=== PATIENT | female | born 1995 | race Caucasian/White ===

== ENCOUNTER 2017-09-01 08:26 | Emergency (ER) | payer MEDICAID ==
[~2017-09-01] VITALS: Ht 175.3 cm; Wt 86.2 kg
[~2017-09-01 08:26] MED LIST: ATOM40CA; DEXM30CA; DIVA250T6; IBUP800T24
[2017-09-01] MEDS ORDERED: SODIUM CHLORIDE 0.9% 1,000 ML IV ONE (09:00)
[2017-09-01 09:29] LABS: Basophils # (auto) 0 uL; Basophils % (auto) 0.6 % (0.0-2.0); Eosinophils # (auto) 0.2 uL; Eosinophils % (auto) 3.3 % (0.0-7.0); Hemoglobin 12.9 g/dL (12.2-16.2); Lymphocytes # (auto) 1.4 uL; Lymphocytes % (auto) 22.4 % (10.0-50.0); Mean Corpuscular Hemoglobin 28.9 pg (28.0-32.0); Monocytes # (auto) 0.6 uL; Monocytes % (auto) 9.2 % (0.0-12.0); Neutrophils # (auto) 4.1 uL; Neutrophils % (auto) 64.5 % (37.0-80.0); Platelet Count (auto) 271 10^3/uL (140-450); Red Blood Cells 4.47 10^6/uL (4.0-5.20); Red Cell Distribution Width 13.9 % (11.8-14.3); White Blood Cell 6.4 10^3/uL (4.4-10.8)
[2017-09-01 09:47] LABS: Alcohol, Urine < 3.0 mg/dL (0-5); Amphetamine Screen, Urine NEGATIVE (NEGATIVE); Barbiturate Scree,Urine NEGATIVE (NEGATIVE); Benzodiazephine Screen, Urine NEGATIVE (NEGATIVE); Cannabinoid Screen, Urine POSITIVE (NEGATIVE); Cocaine Screen, Urine NEGATIVE (NEGATIVE); Opiate Scree,Urine NEGATIVE (NEGATIVE); Phencyclidine Screen, Urine NEGATIVE (NEGATIVE)
[2017-09-01] MEDS ORDERED: SODIUM CHLORIDE 0.9% 1,000 ML IVB ONE (09:53)
[2017-09-01 09:58] LABS: Albumin 3.6 g/dL (3.4-5.0); BUN/Creatinine Ratio 14.8; Bilirubin, Total 0.3 mg/dL (0.2-1.0); Calcium 8.5 mg/dL (8.5-10.1); Potassium 3.7 mmol/L (3.5-5.1); Total Protein 7.3 g/dL (6.4-8.2)
[2017-09-01 10:02] LABS: Acetaminophen < 2.0 ug/mL (10-30); Salicylate 2.7 mg/dL (2.8-20.0)
[2017-09-01 13:14] LABS: Urine Bacteria NONE SEEN /hpf (None Seen); Urine Blood Negative /uL (Negative); Urine Mucus FEW (None Seen); Urine Specific Gravity 1.027 (1.001-1.035); Urine Sperm PRESENT /hpf (None Seen); Urine WBC 5 /hpf (0 - 5)
[2017-09-01] MEDS ORDERED: cefTRIAXone 1GM/10ml IVPUSH 10 ML IV ONE (15:00)
[2017-09-01] MEDS ORDERED: LORazepam 0.5 MG TAB PO ONE (22:15)
[2017-09-02] MEDS ORDERED: LORazepam 0.5 MG TAB ONE (10:43)
[2017-09-02] MEDS ORDERED: LORazepam 0.5 MG TAB PO ONE (11:00)
[2017-09-03] MEDS ORDERED: LORazepam 0.5 MG TAB PO PRN (09:15)
[2017-09-03] MEDS ORDERED: LORazepam 0.5 MG TAB ONE (22:03)
[2017-09-04 07:14] VITALS: BP 110/61
== END 2017-09-04 18:35 | disposition home or self-care (01) ==
LOC: EDBD 08:26 → ER 08:26
DX: T40.7X1A Poisoning by cannabis (derivatives), accidental (unintentional), initial encounter (principal); T39.1X2A Poisoning by 4-Aminophenol derivatives, intentional self-harm, initial encounter; T40.2X2A Poisoning by other opioids, intentional self-harm, initial encounter; J45.909 Unspecified asthma, uncomplicated; F41.9 Anxiety disorder, unspecified; F32.3 Major depressive disorder, single episode, severe with psychotic features; Z85.41 Personal history of malignant neoplasm of cervix uteri; Y92.89 Other specified places as the place of occurrence of the external cause
CPT/HCPCS: 36415; 51702; 71045; 80053; 80307; 80329; 81001; 83735; 84443; 84702; 85025; 93005; 94761; 96361; 96374

== ENCOUNTER 2017-09-20 16:03 | Emergency (ER) | payer MEDICAID ==
[~2017-09-20] VITALS: Ht 172.7 cm; Wt 92.5 kg
[2017-09-20 16:07] VITALS: BP 114/70
[2017-09-20] MEDS ORDERED: DONNATAL 5ml ORAL Elix (BELLADONNA ALK-PHENOBARB) PO ONE (16:30)
[2017-09-20] MEDS ORDERED: LIDOCAINE VISCOUS 2% 15ML UD PO ONE (16:30)
[2017-09-20] MEDS ORDERED: ALUM & MAG HYDROX-SIMETH LIQ(MAALOX) 30 ML PO ONE (16:30)
[2017-09-20 16:48] LABS: Basophils # (auto) 0.1 uL; Basophils % (auto) 0.6 % (0.0-2.0); Eosinophils # (auto) 0.4 uL; Eosinophils % (auto) 4.2 % (0.0-7.0); Hematocrit 39.9 % (36.0-46.0); Hemoglobin 13.5 g/dL (12.2-16.2); Lymphocytes # (auto) 1.9 uL; Mean Corpuscular Hemoglobin 28.9 pg (28.0-32.0); Mean Corpuscular Hgb Conc. 33.9 g/dL (32.0-36.0); Mean Corpuscular Volume 85.4 fL (80.0-100.0); Monocytes # (auto) 0.6 uL; Monocytes % (auto) 7.2 % (0.0-12.0); Neutrophils # (auto) 5.7 uL; Nucleated Red Blood Cells % 0.2 %; Platelet Count (auto) 310 10^3/uL (140-450); Red Blood Cells 4.68 10^6/uL (4.0-5.20); Red Cell Distribution Width 13.7 % (11.8-14.3); White Blood Cell 8.6 10^3/uL (4.4-10.8)
[2017-09-20 17:10] LABS: Anion Gap 9 (5-15); BUN/Creatinine Ratio 13.6; Blood Urea Nitrogen 12 mg/dL (7-18); Carbon Dioxide 24 mmol/L (21-32); Chloride 108 mmol/L (98-107); GFR African American 104 mL/min; Glucose 83 mg/dL (74-106); Sodium 141 mmol/L (136-145)
[2017-09-20 17:11] LABS: Alanine Aminotransferase 48 U/L (13-56); Albumin 4.1 g/dL (3.4-5.0); Alkaline Phosphatase 73 U/L (45-117); Aspartate Aminotransferase 27 U/L (15-37); Bilirubin, Total 0.3 mg/dL (0.2-1.0); Calcium 8.9 mg/dL (8.5-10.1); GFR Non-African American 86 mL/min; Total Protein 8.1 g/dL (6.4-8.2)
== END 2017-09-20 18:39 | disposition left against medical advice (07) ==
LOC: EDBD 16:03 → EDSEX 16:03 → ER 16:03
DX: R07.89 Other chest pain (principal); K29.70 Gastritis, unspecified, without bleeding; Z79.899 Other long term (current) drug therapy
CPT/HCPCS: 36415; 80053; 84484; 85025; 93005

== ENCOUNTER 2017-11-14 22:41 | Inpatient (IN) | payer MEDICAID ==
[~2017-11-14] VITALS: Ht 177.8 cm; Wt 92.1 kg
[2017-11-14] MEDS ORDERED: LORazepam 2MG/ML-1ML VIAL ONE (22:45)
[2017-11-14] MEDS ORDERED: NALBUPHINE HCL 10 MG/1ml INJECTION IV ONE (23:30)
[2017-11-14] MEDS ORDERED: LORazepam 2MG/ML-1ML VIAL IV ONE (23:30)
[2017-11-15] VITALS (42 sets, daily range): BP systolic 97–139; BP diastolic 50–83
[2017-11-15] MEDS ORDERED: LORazepam 2MG/ML-1ML VIAL IV ONE (00:45)
[2017-11-15 01:12] LABS: Basophils # (auto) 0.1 uL; Basophils % (auto) 0.2 % (0.0-2.0); Eosinophils # (auto) 0 uL; Eosinophils % (auto) 0.1 % (0.0-7.0); Hematocrit 38.8 % (36.0-46.0); Hemoglobin 12.9 g/dL (12.2-16.2); Lymphocytes % (auto) 4.4 % (10.0-50.0); Mean Corpuscular Hgb Conc. 33.3 g/dL (32.0-36.0); Mean Corpuscular Volume 84.1 fL (80.0-100.0); Monocytes # (auto) 1.2 uL; Monocytes % (auto) 5.3 % (0.0-12.0); Neutrophils # (auto) 19.6 uL; Platelet Count (auto) 326 10^3/uL (140-450); Red Blood Cells 4.61 10^6/uL (4.0-5.20); Red Cell Distribution Width 13.5 % (11.8-14.3); White Blood Cell 21.8 10^3/uL (4.4-10.8)
[2017-11-15 01:30] LABS: Acetaminophen < 2.0 ug/mL (10-30); Salicylate 1.9 mg/dL (2.8-20.0)
[2017-11-15 02:12] LABS: Alanine Aminotransferase 38 U/L (13-56); Albumin 4.1 g/dL (3.4-5.0); Alkaline Phosphatase 91 U/L (45-117); Anion Gap 9 (5-15); Aspartate Aminotransferase 21 U/L (15-37); BUN/Creatinine Ratio 13.9; Bilirubin, Total 0.2 mg/dL (0.2-1.0); Blood Alcohol < 3.0 mg/dL (0-5); Blood Urea Nitrogen 14 mg/dL (7-18); Calcium 8.3 mg/dL (8.5-10.1); Carbon Dioxide 23 mmol/L (21-32); Chloride 108 mmol/L (98-107); GFR African American 89 mL/min; GFR Non-African American 74 mL/min; Glucose 94 mg/dL (74-106); Potassium 4.4 mmol/L (3.5-5.1); Sodium 140 mmol/L (136-145); Total Protein 8.2 g/dL (6.4-8.2)
[2017-11-15 02:26] LABS: Alcohol, Urine < 3.0 mg/dL (0-5); Amphetamine Screen, Urine NEGATIVE (NEGATIVE); Barbiturate Scree,Urine NEGATIVE (NEGATIVE); Benzodiazephine Screen, Urine NEGATIVE (NEGATIVE); Cannabinoid Screen, Urine POSITIVE (NEGATIVE); Cocaine Screen, Urine NEGATIVE (NEGATIVE); Opiate Scree,Urine POSITIVE (NEGATIVE); Phencyclidine Screen, Urine NEGATIVE (NEGATIVE)
[2017-11-15] MEDS ORDERED: ACETAMINOPHEN 500 MG TAB PO PRN (03:45)
[2017-11-15] MEDS: SODIUM CHLORIDE 0.9% 1,000 ML IV SCH ×2 (04:04→18:04)
[2017-11-15] MEDS ORDERED: LORazepam 2MG/ML-1ML VIAL IV PRN (04:45)
[2017-11-15] MEDS ORDERED: ONDANSETRON HCL 4 MG/2 ML VIAL IV PRN (04:45)
[2017-11-15] MEDS ORDERED: NALOXONE HCL 0.4 MG/ML VIAL ONE (06:12)
[2017-11-15] MEDS ORDERED: NALOXONE HCL 0.4 MG/ML VIAL IV ONE (06:15)
[2017-11-15] MEDS ORDERED: SUCCINYLCHOLINE CHLORIDE 20 MG/ML 10ML VIAL IV ONE (06:30)
[2017-11-15] MEDS ORDERED: PROPOFOL 10 MG/ML 20 ML IV ONE (06:30)
[2017-11-15] MEDS ORDERED: MIDAZOLAM DRIP 50 mg/50mL 50 ML IV ONE (06:38)
[2017-11-15] MEDS: MIDAZOLAM DRIP 50 mg/50mL 50 ML IV SCH ×2 (06:47→23:22)
[2017-11-15 08:06] LABS: Urine Bacteria NONE SEEN /hpf (None Seen); Urine Blood 2+ /uL (Negative); Urine Mucus FEW (None Seen); Urine Specific Gravity 1.008 (1.001-1.035); Urine WBC 3 /hpf (0 - 5)
[2017-11-15] MEDS: cefTRIAXone 1GM/10ml IVPUSH 10 ML IV SCH (09:01)
[2017-11-15] MEDS: ENOXAPARIN SOD 40 MG/0.4 ML SYRINGE SC SCH (10:41)
[2017-11-16] VITALS (74 sets, daily range): BP systolic 103–152; BP diastolic 45–102
[2017-11-16] MEDS: SODIUM CHLORIDE 0.9% 1,000 ML IV SCH ×2 (03:00→09:53)
[2017-11-16] MEDS: MIDAZOLAM DRIP 50 mg/50mL 50 ML IV SCH ×2 (04:06→07:31)
[2017-11-16 04:20] LABS: Basophils # (auto) 0 uL; Basophils % (auto) 0.3 % (0.0-2.0); Eosinophils # (auto) 0.1 uL; Eosinophils % (auto) 0.5 % (0.0-7.0); Hematocrit 34.7 % (36.0-46.0); Hemoglobin 11.9 g/dL (12.2-16.2); Lymphocytes % (auto) 7.2 % (10.0-50.0); Mean Corpuscular Hemoglobin 29.2 pg (28.0-32.0); Mean Corpuscular Hgb Conc. 34.2 g/dL (32.0-36.0); Mean Corpuscular Volume 85.4 fL (80.0-100.0); Neutrophils # (auto) 11.9 uL; Platelet Count (auto) 245 10^3/uL (140-450); Red Blood Cells 4.06 10^6/uL (4.0-5.20); Red Cell Distribution Width 13.6 % (11.8-14.3); White Blood Cell 14.1 10^3/uL (4.4-10.8)
[2017-11-16 04:31] LABS: Albumin 3.2 g/dL (3.4-5.0); BUN/Creatinine Ratio 13.3; Bilirubin, Total 0.5 mg/dL (0.2-1.0); Calcium 8.3 mg/dL (8.5-10.1); Potassium 3.6 mmol/L (3.5-5.1); Total Protein 7.3 g/dL (6.4-8.2)
[2017-11-16] MEDS ORDERED: ACETAMINOPHEN 650 mg PER 20 mL UD ONE (07:58)
[2017-11-16] MEDS: ACETAMINOPHEN 650 mg PER 20 mL UD GT PRN (08:14)
[2017-11-16] MEDS ORDERED: CLINDAMYCIN 600 MG/4 ML VL IM SCH (10:00)
[2017-11-16] MEDS: cefTRIAXone 1GM/10ml IVPUSH 10 ML IV SCH (10:27)
[2017-11-16] MEDS: ENOXAPARIN SOD 40 MG/0.4 ML SYRINGE SC SCH (10:28)
[2017-11-16] MEDS: CLINDAMYCIN 300MG IV 50 ML IV SCH ×2 (10:28→18:35)
[2017-11-16] MEDS ORDERED: PROPOFOL 100 ML IV ONE (11:39)
[2017-11-16] MEDS: PROPOFOL 100 ML IV SCH (13:25)
[2017-11-17] VITALS (102 sets, daily range): BP systolic 100–143; BP diastolic 39–79
[2017-11-17 04:34] LABS: Basophils # (auto) 0 uL; Basophils % (auto) 0.2 % (0.0-2.0); Eosinophils # (auto) 0.1 uL; Eosinophils % (auto) 0.9 % (0.0-7.0); Hematocrit 31.7 % (36.0-46.0); Hemoglobin 10.9 g/dL (12.2-16.2); Lymphocytes % (auto) 8.1 % (10.0-50.0); Mean Corpuscular Hgb Conc. 34.4 g/dL (32.0-36.0); Mean Corpuscular Volume 84.2 fL (80.0-100.0); Monocytes # (auto) 1.2 uL; Monocytes % (auto) 9.8 % (0.0-12.0); Platelet Count (auto) 241 10^3/uL (140-450); Red Blood Cells 3.77 10^6/uL (4.0-5.20); Red Cell Distribution Width 13.6 % (11.8-14.3); White Blood Cell 12.4 10^3/uL (4.4-10.8)
[2017-11-17 05:01] LABS: Albumin 2.8 g/dL (3.4-5.0); BUN/Creatinine Ratio 9.5; Bilirubin, Total 0.5 mg/dL (0.2-1.0); Total Protein 6.8 g/dL (6.4-8.2)
[2017-11-17 05:08] LABS: Potassium 2.9 mmol/L (3.5-5.1)
[2017-11-17] MEDS ORDERED: POTASSIUM CHL 20MEQ/100ML 100 ML IV ONE ×2 (06:24→06:30)
[2017-11-17] MEDS ORDERED: POTASSIUM CHL 10% (20 MEQ/15ML) 15ml ORAL SOLN GT ONE (06:30)
[2017-11-17] MEDS: SODIUM CHLORIDE 0.9% 1,000 ML IV SCH (09:05)
[2017-11-17] MEDS ORDERED: POTASSIUM CHLORIDE 40 MEQ, LIDOCAINE 1% (LOCAL ANESTH.) 4 ML in SODIUM CHL 0.9% 100 ML IV ONE (09:15)
[2017-11-17] MEDS: cefTRIAXone 1GM/10ml IVPUSH 10 ML IV SCH (09:31)
[2017-11-17] MEDS: CLINDAMYCIN 300MG IV 50 ML IV SCH ×2 (09:32→17:25)
[2017-11-17] MEDS: ENOXAPARIN SOD 40 MG/0.4 ML SYRINGE SC SCH (09:32)
[2017-11-17] MEDS: PROPOFOL 100 ML IV SCH ×3 (10:30→22:01)
[2017-11-17] MEDS: MIDAZOLAM DRIP 50 mg/50mL 50 ML IV SCH ×3 (10:30→20:54)
[2017-11-17] MEDS ORDERED: POTASSIUM CHL 20MEQ/100ML 100 ML IV SCH (12:00)
[2017-11-17] MEDS ORDERED: Fibersource Hn 1 Liter GT SCH (14:30)
[2017-11-18] VITALS (98 sets, daily range): BP systolic 101–168; BP diastolic 55–105
[2017-11-18] MEDS: SODIUM CHLORIDE 0.9% 1,000 ML IV SCH ×2 (00:53→11:45)
[2017-11-18] MEDS: PROPOFOL 100 ML IV SCH ×3 (00:54→23:08)
[2017-11-18] MEDS: CLINDAMYCIN 300MG IV 50 ML IV SCH ×3 (02:00→18:06)
[2017-11-18 03:37] LABS: Basophils # (auto) 0 uL; Basophils % (auto) 0.3 % (0.0-2.0); Eosinophils # (auto) 0.2 uL; Eosinophils % (auto) 2.2 % (0.0-7.0); Hematocrit 36.7 % (36.0-46.0); Hemoglobin 12.2 g/dL (12.2-16.2); Lymphocytes # (auto) 1.1 uL; Lymphocytes % (auto) 13.9 % (10.0-50.0); Mean Corpuscular Hemoglobin 28.3 pg (28.0-32.0); Mean Corpuscular Hgb Conc. 33.3 g/dL (32.0-36.0); Mean Corpuscular Volume 85.1 fL (80.0-100.0); Monocytes # (auto) 0.7 uL; Monocytes % (auto) 9.2 % (0.0-12.0); Neutrophils # (auto) 5.7 uL; Neutrophils % (auto) 74.4 % (37.0-80.0); Platelet Count (auto) 278 10^3/uL (140-450); Red Blood Cells 4.32 10^6/uL (4.0-5.20); Red Cell Distribution Width 13.9 % (11.8-14.3); White Blood Cell 7.7 10^3/uL (4.4-10.8)
[2017-11-18 03:57] LABS: Calcium 8.2 mg/dL (8.5-10.1); Potassium 3.5 mmol/L (3.5-5.1)
[2017-11-18 04:00] LABS: BUN/Creatinine Ratio 8.8
[2017-11-18] MEDS: DEXMEDETOMIDINE HCL 400 MCG in D5W 5% 96 ML IV SCH (10:29)
[2017-11-18] MEDS: ENOXAPARIN SOD 40 MG/0.4 ML SYRINGE SC SCH (11:15)
[2017-11-18] MEDS: cefTRIAXone 1GM/10ml IVPUSH 10 ML IV SCH (11:15)
[2017-11-18] MEDS: MIDAZOLAM DRIP 50 mg/50mL 50 ML IV SCH (21:45)
[2017-11-19] VITALS (59 sets, daily range): BP systolic 115–173; BP diastolic 54–93
[2017-11-19] MEDS: SODIUM CHLORIDE 0.9% 1,000 ML IV SCH (01:05)
[2017-11-19] MEDS: CLINDAMYCIN 300MG IV 50 ML IV SCH ×3 (01:54→18:15)
[2017-11-19 03:53] LABS: Basophils # (auto) 0 uL; Basophils % (auto) 0.7 % (0.0-2.0); Eosinophils # (auto) 0.2 uL; Eosinophils % (auto) 2.5 % (0.0-7.0); Hematocrit 29.9 % (36.0-46.0); Hemoglobin 10.1 g/dL (12.2-16.2); Lymphocytes # (auto) 1.3 uL; Lymphocytes % (auto) 19.1 % (10.0-50.0); Mean Corpuscular Hemoglobin 28.3 pg (28.0-32.0); Mean Corpuscular Hgb Conc. 33.7 g/dL (32.0-36.0); Monocytes # (auto) 0.6 uL; Monocytes % (auto) 8.6 % (0.0-12.0); Neutrophils # (auto) 4.5 uL; Neutrophils % (auto) 69.1 % (37.0-80.0); Platelet Count (auto) 292 10^3/uL (140-450); Red Blood Cells 3.56 10^6/uL (4.0-5.20); Red Cell Distribution Width 13.5 % (11.8-14.3); White Blood Cell 6.6 10^3/uL (4.4-10.8)
[2017-11-19 04:11] LABS: Calcium 8.6 mg/dL (8.5-10.1); Potassium 3.3 mmol/L (3.5-5.1)
[2017-11-19 04:13] LABS: Albumin 2.7 g/dL (3.4-5.0); BUN/Creatinine Ratio 15.1
[2017-11-19 04:17] LABS: Bilirubin, Total 0.3 mg/dL (0.2-1.0); Total Protein 7.2 g/dL (6.4-8.2)
[2017-11-19] MEDS ORDERED: FUROSEMIDE 20 MG/2 ML VIAL IV ONE (07:30)
[2017-11-19] MEDS: DEXMEDETOMIDINE HCL 400 MCG in D5W 5% 96 ML IV SCH (07:46)
[2017-11-19] MEDS: ENOXAPARIN SOD 40 MG/0.4 ML SYRINGE SC SCH (09:49)
[2017-11-19] MEDS: cefTRIAXone 1GM/10ml IVPUSH 10 ML IV SCH (09:49)
[2017-11-19] MEDS ORDERED: POTASSIUM CHL 20MEQ/100ML 100 ML IV ONE (11:45)
[2017-11-19] MEDS ORDERED: POTASSIUM CHL 20 Meq TABLET PO ONE (14:30)
[2017-11-19] MEDS ORDERED: LORazepam 2MG/ML-1ML VIAL IV PRN ×2 (14:45)
[2017-11-19] MEDS: ACETAMINOPHEN 650 mg PER 20 mL UD GT PRN (20:27)
[2017-11-20] VITALS (8 sets, daily range): BP systolic 92–138; BP diastolic 37–82
[2017-11-20] MEDS: CLINDAMYCIN 300MG IV 50 ML IV SCH ×3 (02:31→18:48)
[2017-11-20 04:06] LABS: Calcium 9.1 mg/dL (8.5-10.1); Potassium 4.2 mmol/L (3.5-5.1)
[2017-11-20 04:09] LABS: BUN/Creatinine Ratio 21.9
[2017-11-20] MEDS: ENOXAPARIN SOD 40 MG/0.4 ML SYRINGE SC SCH (09:53)
[2017-11-20] MEDS: cefTRIAXone 1GM/10ml IVPUSH 10 ML IV SCH (09:53)
[2017-11-20] MEDS ORDERED: ACETAMINOPHEN 650 mg PER 20 mL UD PO PRN (21:30)
[2017-11-21] MEDS: CLINDAMYCIN 300MG IV 50 ML IV SCH ×2 (01:17→10:00)
[2017-11-21 05:00] VITALS: BP 126/67
[2017-11-21 06:16] LABS: Basophils # (auto) 0 uL; Basophils % (auto) 0.6 % (0.0-2.0); Eosinophils # (auto) 0.2 uL; Eosinophils % (auto) 2.8 % (0.0-7.0); Hematocrit 38.9 % (36.0-46.0); Hemoglobin 13.4 g/dL (12.2-16.2); Lymphocytes # (auto) 1.8 uL; Lymphocytes % (auto) 24.9 % (10.0-50.0); Mean Corpuscular Hemoglobin 28.9 pg (28.0-32.0); Mean Corpuscular Hgb Conc. 34.6 g/dL (32.0-36.0); Mean Corpuscular Volume 83.6 fL (80.0-100.0); Monocytes # (auto) 0.8 uL; Monocytes % (auto) 10.5 % (0.0-12.0); Neutrophils # (auto) 4.4 uL; Neutrophils % (auto) 61.2 % (37.0-80.0); Nucleated Red Blood Cells % 0.1 %; Platelet Count (auto) 424 10^3/uL (140-450); Red Blood Cells 4.65 10^6/uL (4.0-5.20); Red Cell Distribution Width 13.2 % (11.8-14.3); White Blood Cell 7.2 10^3/uL (4.4-10.8)
[2017-11-21 06:37] LABS: Calcium 9.2 mg/dL (8.5-10.1); Potassium 3.7 mmol/L (3.5-5.1)
[2017-11-21] MEDS: cefTRIAXone 1GM/10ml IVPUSH 10 ML IV SCH (08:58)
[2017-11-21 09:00] VITALS: BP 119/75
[2017-11-21] MEDS: ENOXAPARIN SOD 40 MG/0.4 ML SYRINGE SC SCH (10:00)
== END 2017-11-21 10:32 | disposition left against medical advice (07) | DRG 812 ==
LOC: EDBD 22:41 → ER 22:45 → TELE 22:46 → ICU WEST 11-15 14:05 → TELE-CENTR 11-20 07:58 → TELE-WESTW 11-21 06:26
PROVIDERS: ADMIT Nurse Practitioner Family; ATTEND Internal Medicine
PROC: 5A1955Z Respiratory Ventilation, Greater than 96 Consecutive Hours (ICD-10-PCS; principal; 2017-11-15)
PROC: 0BH17EZ Insertion of Endotracheal Airway into Trachea, Via Natural or Artificial Opening (ICD-10-PCS; 2017-11-15)
DX: T40.2X2A Poisoning by other opioids, intentional self-harm, initial encounter (principal); J69.0 Pneumonitis due to inhalation of food and vomit; J96.01 Acute respiratory failure with hypoxia; J96.02 Acute respiratory failure with hypercapnia; G92 Toxic encephalopathy; G93.1 Anoxic brain damage, not elsewhere classified; R56.9 Unspecified convulsions; E87.2 Acidosis; F32.9 Major depressive disorder, single episode, unspecified; E87.70 Fluid overload, unspecified; F29 Unspecified psychosis not due to a substance or known physiological condition; F41.9 Anxiety disorder, unspecified; G89.4 Chronic pain syndrome; T40.602A Poisoning by unspecified narcotics, intentional self-harm, initial encounter; T42.8X2A Poisoning by antiparkinsonism drugs and other central muscle-tone depressants, intentional self-harm, initial encounter; T48.1X2A Poisoning by skeletal muscle relaxants [neuromuscular blocking agents], intentional self-harm, initial encounter; Y92.89 Other specified places as the place of occurrence of the external cause; Z81.8 Family history of other mental and behavioral disorders; Z85.43 Personal history of malignant neoplasm of ovary
CPT/HCPCS: 36415; 36600; 70450; 71045; 80048; 80053; 80307; 80320; 80329; 81001; 81025; 82805; 84132; 84702; 85025; 87040; 87070; 87081; 87086; 87205; 93005; 94002; 94003; 95819; 96365; 96375; 97163; 99291; A4565; J0330; J2250; J2405; J2704; J3480; J3490; J7060

== ENCOUNTER 2018-01-20 16:33 | Emergency (ER) | payer MEDICAID ==
[~2018-01-20] VITALS: Ht 167.6 cm; Wt 77.1 kg
[2018-01-20 16:47] VITALS: BP 136/80
[2018-01-20] MEDS ORDERED: IBUPROFEN 800 MG TAB PO ONE (17:45)
[2018-01-20] MEDS ORDERED: NEOMYCIN-BACITRACIN-POLYM UNITDOSE PKG TOP OINT TOP ONE (17:45)
== END 2018-01-20 17:59 | disposition home or self-care (01) ==
LOC: ER 16:33 → EDBD 16:33 → ER 17:59
DX: S50.02XA Contusion of left elbow, initial encounter (principal); S80.02XA Contusion of left knee, initial encounter; F12.10 Cannabis abuse, uncomplicated; F15.10 Other stimulant abuse, uncomplicated; Y04.8XXA Assault by other bodily force, initial encounter; Y93.89 Activity, other specified; Y92.89 Other specified places as the place of occurrence of the external cause; Y99.8 Other external cause status

== ENCOUNTER 2018-03-15 09:16 | Emergency (ER) | payer MEDICAID ==
[~2018-03-15] VITALS: Ht 172.7 cm; Wt 88.5 kg
[~2018-03-15 09:16] MED LIST changes: +DIVA1TAB58; -DIVA250T6
[2018-03-15 09:34] VITALS: BP 126/67
== END 2018-03-15 10:02 | disposition home or self-care (01) ==
LOC: ER 09:16
DX: N92.6 Irregular menstruation, unspecified (principal); N39.0 Urinary tract infection, site not specified; J45.909 Unspecified asthma, uncomplicated; Z79.899 Other long term (current) drug therapy
CPT/HCPCS: 81025

== ENCOUNTER 2019-01-12 08:02 | Emergency (ER) | payer MEDICAID ==
[~2019-01-12] VITALS: Ht 172.7 cm; Wt 83.9 kg
[2019-01-12] MEDS ORDERED: SODIUM CHLORIDE 0.9% 1,000 ML IV ONE ×2 (08:22)
[2019-01-12 08:36] LABS: Urine Pregnacy Test Negative (Negative)
[2019-01-12 08:42] VITALS: BP 98/54
[2019-01-12 08:46] LABS: Basophils # (auto) 0 uL; Basophils % (auto) 0.6 % (0.0-2.0); Eosinophils # (auto) 0.2 uL; Eosinophils % (auto) 2.1 % (0.0-7.0); Hemoglobin 13.1 g/dL (12.2-16.2); Lymphocytes # (auto) 1.8 uL; Lymphocytes % (auto) 25.5 % (10.0-50.0); Mean Corpuscular Hemoglobin 29.2 pg (28.0-32.0); Mean Corpuscular Hgb Conc. 33.7 g/dL (32.0-36.0); Mean Corpuscular Volume 86.8 fL (80.0-100.0); Monocytes # (auto) 0.9 uL; Monocytes % (auto) 12.1 % (0.0-12.0); Neutrophils # (auto) 4.3 uL; Neutrophils % (auto) 59.7 % (37.0-80.0); Nucleated Red Blood Cells % 0.1 %; Platelet Count (auto) 270 10^3/uL (140-450); Red Blood Cells 4.49 10^6/uL (4.0-5.20); Red Cell Distribution Width 14.3 % (11.8-14.3); White Blood Cell 7.2 10^3/uL (4.4-10.8)
[2019-01-12 08:54] LABS: Urine Bacteria FEW /hpf (None Seen); Urine Blood Negative /uL (Negative); Urine Mucus FEW (None Seen); Urine Specific Gravity 1.026 (1.001-1.035); Urine WBC 33 /hpf (0 - 5)
[2019-01-12 08:58] LABS: Alcohol, Urine < 3.0 mg/dL (0-5); Amphetamine Screen, Urine NEGATIVE (NEGATIVE); Barbiturate Scree,Urine NEGATIVE (NEGATIVE); Benzodiazephine Screen, Urine NEGATIVE (NEGATIVE); Cannabinoid Screen, Urine POSITIVE (NEGATIVE); Cocaine Screen, Urine POSITIVE (NEGATIVE); Opiate Scree,Urine NEGATIVE (NEGATIVE); Phencyclidine Screen, Urine NEGATIVE (NEGATIVE)
[2019-01-12 09:01] LABS: Albumin 3.8 g/dL (3.4-5.0); Potassium 3.3 mmol/L (3.5-5.1)
[2019-01-12 09:03] LABS: BUN/Creatinine Ratio 12.4
[2019-01-12 09:06] LABS: Bilirubin, Total 0.5 mg/dL (0.2-1.0); Total Protein 7.5 g/dL (6.4-8.2)
[2019-01-12] MEDS ORDERED: POTASSIUM EFFERVESENT TAB 25 MEQ PO ONE (09:15)
== END 2019-01-12 09:44 | disposition home or self-care (01) ==
LOC: ER 08:03
DX: N83.202 Unspecified ovarian cyst, left side (principal); J45.909 Unspecified asthma, uncomplicated; F17.210 Nicotine dependence, cigarettes, uncomplicated; R19.7 Diarrhea, unspecified; Z88.0 Allergy status to penicillin; Z79.899 Other long term (current) drug therapy
CPT/HCPCS: 36415; 80053; 80307; 81001; 81025; 83690; 85025; 96360

== ENCOUNTER 2019-02-22 21:47 | Emergency (ER) | payer MEDICAID ==
[~2019-02-22] VITALS: Ht 172.7 cm; Wt 83.9 kg
[2019-02-22 22:36] LABS: Basophils # (auto) 0 uL; Basophils % (auto) 0.5 % (0.0-2.0); Eosinophils # (auto) 0.2 uL; Eosinophils % (auto) 2.9 % (0.0-7.0); Hematocrit 41.1 % (36.0-46.0); Hemoglobin 13.5 g/dL (12.2-16.2); Lymphocytes # (auto) 1.5 uL; Lymphocytes % (auto) 23.2 % (10.0-50.0); Mean Corpuscular Hemoglobin 29.1 pg (28.0-32.0); Mean Corpuscular Hgb Conc. 32.8 g/dL (32.0-36.0); Mean Corpuscular Volume 88.6 fL (80.0-100.0); Monocytes # (auto) 0.5 uL; Monocytes % (auto) 7.7 % (0.0-12.0); Neutrophils # (auto) 4.2 uL; Neutrophils % (auto) 65.7 % (37.0-80.0); Platelet Count (auto) 269 10^3/uL (140-450); Red Blood Cells 4.64 10^6/uL (4.0-5.20); Red Cell Distribution Width 14.3 % (11.8-14.3); White Blood Cell 6.4 10^3/uL (4.4-10.8)
[2019-02-22 22:47] LABS: Albumin 3.5 g/dL (3.4-5.0); BUN/Creatinine Ratio 8.5; Calcium 8.8 mg/dL (8.5-10.1); Potassium 3.9 mmol/L (3.5-5.1)
[2019-02-22 22:50] LABS: Bilirubin, Total 0.3 mg/dL (0.2-1.0); Total Protein 7.4 g/dL (6.4-8.2)
[2019-02-23 01:06] LABS: Urine Bacteria MANY /hpf (None Seen); Urine Blood Negative /uL (Negative); Urine Mucus FEW (None Seen); Urine Specific Gravity 1.016 (1.001-1.035); Urine WBC 53 /hpf (0 - 5)
[2019-02-23] MEDS ORDERED: SODIUM CHLORIDE 0.9% 2,000 ML IV ONE (06:15)
[2019-02-23] MEDS ORDERED: cefTRIAXone 1GM/50ML D5W 50 ML IV ONE (06:15)
[2019-02-23] MEDS ORDERED: ONDANSETRON HCL 4 MG/2 ML VIAL IV ONE (06:15)
[2019-02-23] MEDS ORDERED: MORPHINE SULFATE 4 MG/ML SYR/VIAL IV ONE (06:15)
[2019-02-23 07:00] VITALS: BP 108/53
== END 2019-02-23 08:31 | disposition home or self-care (01) ==
LOC: ER 21:47
DX: N39.0 Urinary tract infection, site not specified (principal); N83.8 Other noninflammatory disorders of ovary, fallopian tube and broad ligament; N83.202 Unspecified ovarian cyst, left side; J45.909 Unspecified asthma, uncomplicated; F17.210 Nicotine dependence, cigarettes, uncomplicated; Z88.0 Allergy status to penicillin; Z79.1 Long term (current) use of non-steroidal anti-inflammatories (NSAID); Z79.899 Other long term (current) drug therapy
CPT/HCPCS: 36415; 74176; 80053; 81001; 82150; 83690; 84702; 85025; 96365; 96366; 96375; 99284; J0696; J2270; J2405; J7030

== ENCOUNTER 2019-02-25 04:06 | Emergency (ER) | payer MEDICAID ==
[~2019-02-25] VITALS: Ht 177.8 cm; Wt 86.2 kg
[2019-02-25 04:22] VITALS: BP 108/68
== END 2019-02-25 10:48 | disposition left against medical advice (07) ==
LOC: EDBD 04:06 → ER 04:10
DX: R10.9 Unspecified abdominal pain (principal); Z53.21 Procedure and treatment not carried out due to patient leaving prior to being seen by health care provider

== ENCOUNTER 2019-02-28 12:30 | Emergency (ER) | payer MEDICAID ==
[~2019-02-28] VITALS: Ht 172.7 cm; Wt 83.9 kg
[2019-02-28 13:48] LABS: Basophils # (auto) 0 uL; Basophils % (auto) 0.3 % (0.0-2.0); Eosinophils # (auto) 0.2 uL; Hematocrit 40.1 % (36.0-46.0); Hemoglobin 13.4 g/dL (12.2-16.2); Lymphocytes # (auto) 1.7 uL; Lymphocytes % (auto) 22.4 % (10.0-50.0); Mean Corpuscular Hemoglobin 29.3 pg (28.0-32.0); Mean Corpuscular Hgb Conc. 33.4 g/dL (32.0-36.0); Mean Corpuscular Volume 87.6 fL (80.0-100.0); Monocytes # (auto) 0.6 uL; Monocytes % (auto) 8.1 % (0.0-12.0); Neutrophils # (auto) 5.1 uL; Neutrophils % (auto) 67.2 % (37.0-80.0); Nucleated Red Blood Cells % 0.1 %; Platelet Count (auto) 296 10^3/uL (140-450); Red Blood Cells 4.58 10^6/uL (4.0-5.20); Red Cell Distribution Width 14.1 % (11.8-14.3); White Blood Cell 7.6 10^3/uL (4.4-10.8)
[2019-02-28] MEDS ORDERED: HYDROcodone-ACET 10/325MG TAB PO ONE (14:00)
[2019-02-28 18:12] VITALS: BP 107/82
== END 2019-02-28 18:13 | disposition home or self-care (01) ==
LOC: ER 12:34
DX: N83.202 Unspecified ovarian cyst, left side (principal); J45.909 Unspecified asthma, uncomplicated; F17.210 Nicotine dependence, cigarettes, uncomplicated; F12.10 Cannabis abuse, uncomplicated; Z88.0 Allergy status to penicillin
CPT/HCPCS: 36415; 76856; 84702; 85025

== ENCOUNTER 2019-05-16 11:29 | Emergency (ER) | payer MEDICAID ==
[~2019-05-16] VITALS: Ht 172.7 cm; Wt 79.4 kg
[2019-05-16 11:34] VITALS: BP 130/72
[2019-05-16] MEDS ORDERED: cefTRIAXone SOD 1,000 MG VL IM ONE (12:15)
[2019-05-16] MEDS ORDERED: KETOROLAC TROMETH 60MG/2ML VIAL IM ONE (12:15)
[2019-05-16] MEDS ORDERED: LIDOCAINE 2% (LOCAL ANESTH.) PF 5ml SDV ONE (12:18)
== END 2019-05-16 12:55 | disposition home or self-care (01) ==
LOC: ER 11:30
DX: N39.0 Urinary tract infection, site not specified (principal); F17.210 Nicotine dependence, cigarettes, uncomplicated; F12.10 Cannabis abuse, uncomplicated; J45.909 Unspecified asthma, uncomplicated; Z98.51 Tubal ligation status; Z90.710 Acquired absence of both cervix and uterus
CPT/HCPCS: 81002; 81025; 96372; 99283; J0696; J1885; J2001

== ENCOUNTER 2019-06-16 07:40 | Emergency (ER) | payer MEDICAID ==
[~2019-06-16] VITALS: Ht 172.7 cm; Wt 77.1 kg
[2019-06-16 07:50] VITALS: BP 121/69
== END 2019-06-16 09:03 | disposition left against medical advice (07) ==
LOC: ER 07:40
DX: R10.2 Pelvic and perineal pain (principal); Z32.02 Encounter for pregnancy test, result negative; Z53.21 Procedure and treatment not carried out due to patient leaving prior to being seen by health care provider

== ENCOUNTER 2020-05-18 14:52 | Emergency (ER) | payer MEDICAID ==
[~2020-05-18] VITALS: Ht 177.8 cm; Wt 69.9 kg
[2020-05-18 15:18] VITALS: BP 138/82
[2020-05-18] MEDS ORDERED: cefTRIAXone SOD 1,000 MG VL IM ONE (17:15)
[2020-05-18] MEDS ORDERED: KETOROLAC TROMETH 60MG/2ML VIAL IM ONE (17:15)
[2020-05-18] MEDS ORDERED: methylPREDNISolone SOD SUCC 125 MG/2 ML VL IM ONE (17:15)
== END 2020-05-18 18:05 | disposition home or self-care (01) ==
LOC: ER 14:52 → EDBD 14:52 → ER 18:05
DX: S80.212A Abrasion, left knee, initial encounter (principal); S80.211A Abrasion, right knee, initial encounter; J03.90 Acute tonsillitis, unspecified; J45.909 Unspecified asthma, uncomplicated; Z98.51 Tubal ligation status; Z90.710 Acquired absence of both cervix and uterus; X58.XXXA Exposure to other specified factors, initial encounter; Y93.89 Activity, other specified; Y92.89 Other specified places as the place of occurrence of the external cause; Y99.8 Other external cause status
CPT/HCPCS: 96372; 99284; J0696; J1885; J2930

== ENCOUNTER 2021-03-10 01:58 | Emergency (ER) | payer MEDICAID ==
[~2021-03-10] VITALS: Ht 172.7 cm; Wt 49.9 kg
[~2021-03-10 01:58] MED LIST changes: -IBUP800T24; +IBUP800T27
[2021-03-10 02:58] VITALS: BP 110/84
[2021-03-10 04:20] LABS: Basophils # (auto) 0 10 ^3/uL (0-0.2); Basophils % (auto) 0.4 % (0.0-2.0); Eosinophils # (auto) 0.1 10 ^3/uL (0-0.8); Hematocrit 34.7 % (36.0-46.0); Hemoglobin 11.6 g/dL (12.2-16.2); Lymphocytes # (auto) 1.9 10 ^3/uL (0.4-5.4); Lymphocytes % (auto) 30.5 % (10.0-50.0); Mean Corpuscular Hemoglobin 27.2 pg (28.0-32.0); Mean Corpuscular Hgb Conc. 33.3 g/dL (32.0-36.0); Mean Corpuscular Volume 81.7 fL (80.0-100.0); Monocytes # (auto) 0.6 10 ^3/uL (0-1.3); Monocytes % (auto) 9.7 % (0.0-12.0); Neutrophils # (auto) 3.5 10 ^3/uL (1.6-8.6); Neutrophils % (auto) 57.4 % (37.0-80.0); Nucleated Red Blood Cells % 0.1 %; Red Blood Cells 4.25 10^6/uL (4.0-5.20); Red Cell Distribution Width 14.4 % (11.8-14.3); White Blood Cell 6.2 10^3/uL (4.4-10.8)
[2021-03-10 04:59] LABS: Albumin 3.4 g/dL (3.4-5.0); Calcium 8.5 mg/dL (8.5-10.1); Potassium 3.6 mmol/L (3.5-5.1)
[2021-03-10 05:02] LABS: BUN/Creatinine Ratio 24.4; Bilirubin, Total 0.3 mg/dL (0.2-1.0); Total Protein 7.4 g/dL (6.4-8.2)
== END 2021-03-10 04:23 | disposition left against medical advice (07) ==
LOC: EDUNIT# 01:58 → ER 01:58 → EDBD 01:58 → ER 04:23
DX: R53.83 Other fatigue (principal); R51.9 Headache, unspecified; R00.1 Bradycardia, unspecified; Z59.00 Homelessness unspecified; Z88.0 Allergy status to penicillin; Z79.899 Other long term (current) drug therapy
CPT/HCPCS: 36415; 70450; 71045; 80053; 83690; 83880; 84702; 85025; 93005

== ENCOUNTER 2021-07-01 13:03 | Emergency (ER) | payer MEDICAID ==
[~2021-07-01] VITALS: Ht 172.7 cm; Wt 70.8 kg
[2021-07-01 13:14] VITALS: BP 113/73
[2021-07-01 14:27] LABS: Basophils # (auto) 0.1 10 ^3/uL (0-0.2); Eosinophils # (auto) 0.2 10 ^3/uL (0-0.8); Lymphocytes % (auto) 33.4 % (10.0-50.0); Mean Corpuscular Hemoglobin 26.1 pg (28.0-32.0); Nucleated Red Blood Cells % 0.1 %
[2021-07-01 14:29] LABS: Basophils % (auto) 0.8 % (0.0-2.0); Eosinophils % (auto) 2.7 % (0.0-7.0); Hematocrit 35.9 % (36.0-46.0); Hemoglobin 11.9 g/dL (12.2-16.2); Lymphocytes # (auto) 2.3 10 ^3/uL (0.4-5.4); Mean Corpuscular Volume 78.9 fL (80.0-100.0); Monocytes # (auto) 0.7 10 ^3/uL (0-1.3); Neutrophils # (auto) 3.7 10 ^3/uL (1.6-8.6); Neutrophils % (auto) 53.1 % (37.0-80.0); Red Blood Cells 4.55 10^6/uL (4.0-5.20); Red Cell Distribution Width 15.1 % (11.8-14.3)
[2021-07-01 14:44] LABS: Calcium 8.2 mg/dL (8.5-10.1); Potassium 4.1 mmol/L (3.5-5.1)
[2021-07-01 14:54] LABS: Albumin 3.3 g/dL (3.4-5.0); BUN/Creatinine Ratio 21.4; Bilirubin, Total 0.2 mg/dL (0.2-1.0)
== END 2021-07-01 15:22 | disposition left against medical advice (07) ==
LOC: ER 13:03
DX: R10.9 Unspecified abdominal pain (principal); R11.2 Nausea with vomiting, unspecified; R19.7 Diarrhea, unspecified; M79.606 Pain in leg, unspecified; Z79.1 Long term (current) use of non-steroidal anti-inflammatories (NSAID); Z79.899 Other long term (current) drug therapy; Z88.0 Allergy status to penicillin
CPT/HCPCS: 36415; 80053; 83690; 84702; 85025

== ENCOUNTER 2021-08-12 23:21 | Emergency (ER) | payer MEDICAID ==
[~2021-08-12] VITALS: Ht 172.7 cm; Wt 72.6 kg
[2021-08-12 23:56] LABS: Mean Corpuscular Hemoglobin 26.4 pg (28.0-32.0); Mean Corpuscular Hgb Conc. 33.1 g/dL (32.0-36.0); Red Cell Distribution Width 15.7 % (11.8-14.3)
[2021-08-12 23:58] LABS: Basophils # (auto) 0 10 ^3/uL (0-0.2); Basophils % (auto) 0.4 % (0.0-2.0); Eosinophils # (auto) 0.2 10 ^3/uL (0-0.8); Eosinophils % (auto) 2.7 % (0.0-7.0); Hematocrit 31.9 % (36.0-46.0); Hemoglobin 10.6 g/dL (12.2-16.2); Lymphocytes # (auto) 2.3 10 ^3/uL (0.4-5.4); Lymphocytes % (auto) 32.2 % (10.0-50.0); Mean Corpuscular Volume 79.7 fL (80.0-100.0); Monocytes # (auto) 0.8 10 ^3/uL (0-1.3); Monocytes % (auto) 11.2 % (0.0-12.0); Neutrophils # (auto) 3.9 10 ^3/uL (1.6-8.6); Neutrophils % (auto) 53.5 % (37.0-80.0); White Blood Cell 7.2 10^3/uL (4.4-10.8)
[2021-08-13 00:15] LABS: Albumin 3.3 g/dL (3.4-5.0); Calcium 8.3 mg/dL (8.5-10.1); Potassium 3.9 mmol/L (3.5-5.1)
[2021-08-13 00:17] LABS: BUN/Creatinine Ratio 21.7
[2021-08-13 00:27] LABS: Bilirubin, Total 0.2 mg/dL (0.2-1.0); Total Protein 7.1 g/dL (6.4-8.2)
[2021-08-13 01:18] LABS: Urine Bacteria FEW /hpf (None Seen); Urine Blood 3+ /uL (Negative); Urine Mucus FEW (None Seen); Urine Specific Gravity 1.024 (1.001-1.035); Urine WBC 6 /hpf (0 - 5)
[2021-08-13 01:37] LABS: Alcohol, Urine < 3.0 mg/dL (0-10); Amphetamine Screen, Urine POSITIVE (NEGATIVE); Barbiturate Scree,Urine NEGATIVE (NEGATIVE); Benzodiazephine Screen, Urine NEGATIVE (NEGATIVE); Cocaine Screen, Urine NEGATIVE (NEGATIVE); Opiate Scree,Urine NEGATIVE (NEGATIVE); Phencyclidine Screen, Urine NEGATIVE (NEGATIVE)
[2021-08-13 01:45] LABS: Cannabinoid Screen, Urine POSITIVE (NEGATIVE)
[2021-08-13] MEDS ORDERED: IOHEXOL 300 MG/ML 100ML BOTTLE IJ ONE (02:06)
[2021-08-13] MEDS ORDERED: SULF400T11 PO (04:53)
[2021-08-13 05:00] VITALS: BP 106/52
== END 2021-08-13 05:36 | disposition home or self-care (01) ==
LOC: ER 23:21
DX: N39.0 Urinary tract infection, site not specified (principal); F12.10 Cannabis abuse, uncomplicated; F15.10 Other stimulant abuse, uncomplicated; Z59.00 Homelessness unspecified; Z88.0 Allergy status to penicillin
CPT/HCPCS: 36415; 74177; 80053; 80307; 81001; 83605; 83880; 84702; 85025; 93005; 99285; Q9967

== ENCOUNTER 2021-11-30 23:33 | Emergency (ER) | payer MEDICAID ==
[~2021-11-30] VITALS: Ht 172.7 cm; Wt 59.9 kg
[~2021-11-30 23:33] MED LIST changes: +SULF400T11 PO
[2021-11-30 23:38] VITALS: BP 105/69
[2021-12-01 01:45] LABS: Basophils # (auto) 0 10 ^3/uL (0-0.2); Eosinophils # (auto) 0.1 10 ^3/uL (0-0.8); Lymphocytes # (auto) 1.5 10 ^3/uL (0.4-5.4); Red Blood Cells 4.35 10^6/uL (4.0-5.20)
[2021-12-01 01:47] LABS: Basophils % (auto) 0.7 % (0.0-2.0); Eosinophils % (auto) 1.5 % (0.0-7.0); Hematocrit 34.7 % (36.0-46.0); Hemoglobin 11.4 g/dL (12.2-16.2); Lymphocytes % (auto) 23.9 % (10.0-50.0); Mean Corpuscular Hemoglobin 26.2 pg (28.0-32.0); Mean Corpuscular Hgb Conc. 32.8 g/dL (32.0-36.0); Mean Corpuscular Volume 79.8 fL (80.0-100.0); Monocytes # (auto) 0.4 10 ^3/uL (0-1.3); Monocytes % (auto) 6.7 % (0.0-12.0); Neutrophils # (auto) 4.1 10 ^3/uL (1.6-8.6); Neutrophils % (auto) 67.2 % (37.0-80.0); Nucleated Red Blood Cells % 0.1 %; Red Cell Distribution Width 13.8 % (11.8-14.3); White Blood Cell 6.2 10^3/uL (4.4-10.8)
[2021-12-01 02:06] LABS: Albumin 3.9 g/dL (3.4-5.0); BUN/Creatinine Ratio 25.6; Calcium 8.6 mg/dL (8.5-10.1); Potassium 4.1 mmol/L (3.5-5.1)
[2021-12-01 02:09] LABS: Bilirubin, Total 0.4 mg/dL (0.2-1.0); Total Protein 7.8 g/dL (6.4-8.2)
== END 2021-12-01 04:15 | disposition home or self-care (01) ==
LOC: EDBD 23:33 → EDUNIT# 23:33 → ER 23:33
DX: N93.8 Other specified abnormal uterine and vaginal bleeding (principal); F12.10 Cannabis abuse, uncomplicated; F15.10 Other stimulant abuse, uncomplicated; Z59.00 Homelessness unspecified; Z88.0 Allergy status to penicillin
CPT/HCPCS: 36415; 80053; 84702; 85025

== ENCOUNTER 2022-01-27 12:34 | Emergency (ER) | payer MEDICAID ==
[~2022-01-27] VITALS: Ht 177.8 cm; Wt 63.6 kg
[2022-01-27 16:06] LABS: Basophils # (auto) 0 10 ^3/uL (0-0.2); Basophils % (auto) 0.6 % (0.0-2.0); Eosinophils # (auto) 0.1 10 ^3/uL (0-0.8); Eosinophils % (auto) 1.6 % (0.0-7.0); Hematocrit 35.5 % (36.0-46.0); Hemoglobin 11.3 g/dL (12.2-16.2); Lymphocytes # (auto) 1.8 10 ^3/uL (0.4-5.4); Lymphocytes % (auto) 28.6 % (10.0-50.0); Mean Corpuscular Hemoglobin 25.6 pg (28.0-32.0); Mean Corpuscular Hgb Conc. 31.8 g/dL (32.0-36.0); Mean Corpuscular Volume 80.4 fL (80.0-100.0); Monocytes # (auto) 0.5 10 ^3/uL (0-1.3); Neutrophils # (auto) 3.8 10 ^3/uL (1.6-8.6); Neutrophils % (auto) 61.2 % (37.0-80.0); Red Blood Cells 4.42 10^6/uL (4.0-5.20); Red Cell Distribution Width 14.7 % (11.8-14.3); White Blood Cell 6.2 10^3/uL (4.4-10.8)
[2022-01-27 16:19] LABS: Salicylate < 1.7 mg/dL (2.8-20.0)
[2022-01-27 16:21] LABS: Albumin 3.6 g/dL (3.4-5.0); Calcium 8.9 mg/dL (8.5-10.1); Potassium 3.4 mmol/L (3.5-5.1)
[2022-01-27 16:27] LABS: BUN/Creatinine Ratio 23.1; Bilirubin, Total 0.5 mg/dL (0.2-1.0); Total Protein 7.5 g/dL (6.4-8.2)
[2022-01-27 16:34] LABS: Acetaminophen < 2.0 ug/mL (10-30)
[2022-01-27] MEDS ORDERED: LIDOCAINE VISCOUS 2% 15ML UD PO ONE (17:00)
[2022-01-27] MEDS ORDERED: ALUM & MAG HYDROX-SIMETH LIQ(MAALOX) 30 ML PO ONE (17:00)
[2022-01-27] MEDS ORDERED: FAMOTIDINE 20 MG TAB PO ONE (17:00)
[2022-01-27 21:42] VITALS: BP 105/64
[2022-01-27] MEDS ORDERED: OLANZapine 5 MG TAB PO SCH (22:00)
== END 2022-01-28 05:25 | disposition left against medical advice (07) ==
LOC: EDBD 12:34 → ER 12:34
DX: F15.10 Other stimulant abuse, uncomplicated (principal); F22 Delusional disorders; F12.10 Cannabis abuse, uncomplicated; J45.909 Unspecified asthma, uncomplicated; Z59.00 Homelessness unspecified
CPT/HCPCS: 36415; 71045; 80053; 80329; 83880; 84484; 84702; 85025; 93005

== ENCOUNTER 2022-12-20 07:23 | Inpatient (IN) | payer MEDICAID ==
[~2022-12-20] VITALS: Ht 172.7 cm; Wt 87.0 kg
[~2022-12-20 07:23] MED LIST changes: +IBUP-1456; -IBUP800T27
[2022-12-20 09:02] LABS: Basophils # (auto) 0 10 ^3/uL (0-0.2); Basophils % (auto) 0.2 % (0.0-2.0); Eosinophils # (auto) 0.2 10 ^3/uL (0-0.8); Eosinophils % (auto) 1.2 % (0.0-7.0); Hematocrit 34.8 % (36.0-46.0); Hemoglobin 11.5 g/dL (12.2-16.2); Lymphocytes # (auto) 1.1 10 ^3/uL (0.4-5.4); Lymphocytes % (auto) 6.3 % (10.0-50.0); Mean Corpuscular Hemoglobin 27.5 pg (28.0-32.0); Mean Corpuscular Volume 83.3 fL (80.0-100.0); Monocytes # (auto) 1.2 10 ^3/uL (0-1.3); Neutrophils # (auto) 14.6 10 ^3/uL (1.6-8.6); Neutrophils % (auto) 85.3 % (37.0-80.0); Red Blood Cells 4.17 10^6/uL (4.0-5.20); White Blood Cell 17.1 10^3/uL (4.4-10.8)
[2022-12-20 09:11] LABS: Albumin 3.4 g/dL (3.4-5.0); Calcium 8.2 mg/dL (8.5-10.1); Potassium 3.5 mmol/L (3.5-5.1)
[2022-12-20 09:15] LABS: BUN/Creatinine Ratio 23.1 (10.0-20.0); Bilirubin, Total 0.6 mg/dL (0.2-1.0); Total Protein 7.2 g/dL (6.4-8.2)
[2022-12-20 09:47] LABS: Urine Bacteria NONE SEEN /hpf (None Seen); Urine Blood Negative /uL (Negative); Urine Mucus FEW (None Seen); Urine WBC 5 /hpf (0 - 5)
[2022-12-20] MEDS ORDERED: SODIUM CHLORIDE 0.9% 1,000 ML IV ONE (11:00)
[2022-12-20] MEDS ORDERED: ONDANSETRON HCL 4 MG/2 ML VIAL IV ONE (11:00)
[2022-12-20] MEDS ORDERED: KETOROLAC TROMETH 30 MG/ML 1ML VIAL IV ONE (11:00)
[2022-12-20] MEDS ORDERED: ONDANSETRON HCL 4 MG/2 ML VIAL IV PRN (19:30)
[2022-12-20] MEDS ORDERED: MORPHINE SULFATE INJ 2 MG/ml SYRG IV PRN (19:30)
[2022-12-20] MEDS ORDERED: NITROGLYCERIN 0.4 MG SL TAB SL PRN (19:30)
[2022-12-20] MEDS ORDERED: ACETAMINOPHEN 500 MG TAB PO PRN (19:30)
[2022-12-20] MEDS: LACTATED RINGER'S 1,000 ML IV SCH (20:38)
[2022-12-20] MEDS: metroNIDAZOLE 500MG/100ML 100 ML IV SCH (22:20)
[2022-12-20] MEDS: DOXYCYCLINE 100MG/250ML 250 ML IV SCH (23:24)
[2022-12-21] MEDS: LACTATED RINGER'S 1,000 ML IV SCH ×4 (02:10→22:10)
[2022-12-21 05:07] LABS: Basophils # (auto) 0 10 ^3/uL (0-0.2); Basophils % (auto) 0.4 % (0.0-2.0); Eosinophils # (auto) 0.3 10 ^3/uL (0-0.8); Eosinophils % (auto) 4.6 % (0.0-7.0); Hematocrit 32.4 % (36.0-46.0); Hemoglobin 10.7 g/dL (12.2-16.2); Lymphocytes # (auto) 1.4 10 ^3/uL (0.4-5.4); Lymphocytes % (auto) 22.1 % (10.0-50.0); Mean Corpuscular Hemoglobin 27.6 pg (28.0-32.0); Mean Corpuscular Hgb Conc. 32.9 g/dL (32.0-36.0); Mean Corpuscular Volume 83.9 fL (80.0-100.0); Monocytes # (auto) 0.7 10 ^3/uL (0-1.3); Monocytes % (auto) 11.6 % (0.0-12.0); Neutrophils # (auto) 3.8 10 ^3/uL (1.6-8.6); Neutrophils % (auto) 61.3 % (37.0-80.0); Red Blood Cells 3.86 10^6/uL (4.0-5.20); Red Cell Distribution Width 14.4 % (11.8-14.3); White Blood Cell 6.2 10^3/uL (4.4-10.8)
[2022-12-21 05:31] LABS: INR 1.05 (0.9-1.15)
[2022-12-21] MEDS ORDERED: HYDROmorphone HCL 2 MG/ML VL/or syr ONE (10:17)
[2022-12-21] MEDS ORDERED: LIDOCAINE 2% (LOCAL ANESTH.) PF 5ml SDV ONE (10:17)
[2022-12-21] MEDS ORDERED: GLYCOPYRROLATE 0.2 MG/ML 1ML VIAL ONE (10:17)
[2022-12-21] MEDS ORDERED: ePHEDrine SULFATE 50 MG/ML AMP ONE (10:17)
[2022-12-21] MEDS ORDERED: PROPOFOL 10 MG/ML 20 ML IV ONE (10:17)
[2022-12-21] MEDS ORDERED: MIDAZOLAM HCL 2MG/2ML 2ml VIAL (1mg/ml) ONE (10:17)
[2022-12-21] MEDS ORDERED: fentaNYL CITRATE 100 MCG/2 ML VL ONE (10:17)
[2022-12-21] MEDS ORDERED: ONDANSETRON HCL 4 MG/2 ML VIAL ONE (10:17)
[2022-12-21] MEDS ORDERED: DexAMETHasone SOD PHOS 10MG/1ML VIAL INJ ONE (10:17)
[2022-12-21] MEDS: metroNIDAZOLE 500MG/100ML 100 ML IV SCH ×2 (10:19→21:46)
[2022-12-21] MEDS: cefTRIAXone 1GM/50ML D5W 50 ML IV SCH (10:20)
[2022-12-21] MEDS: DOXYCYCLINE 100MG/250ML 250 ML IV SCH ×2 (10:28→22:48)
[2022-12-21] MEDS ORDERED: LIDOCAINE W/ EPINEPHRINE 2% INJ 20ML VIAL ONE (12:05)
[2022-12-21] MEDS ORDERED: BUPIVACAINE 0.25% INJ 50ML VIAL ONE (12:05)
[2022-12-21] MEDS ORDERED: METHYLENE BLUE 0.5% 5MG/ML 10ml AMP IV ONE (12:12)
[2022-12-21 14:05] VITALS: PULSE 83; RESP 14; O2SAT 100
[2022-12-21] MEDS ORDERED: HYDROmorphone HCL 2 MG/ML VL/or syr IV PRN (14:30)
[2022-12-21] MEDS ORDERED: MORPHINE SULFATE 4 MG/ML SYR/VIAL IV PRN (14:30)
[2022-12-21] MEDS ORDERED: ePHEDrine SULFATE 50 MG/ML AMP IV PRN (14:30)
[2022-12-21] MEDS ORDERED: LABETALOL HCL 5 MG/ML 4ML SYRINGE IV PRN (14:30)
[2022-12-21] MEDS ORDERED: MIDAZOLAM HCL 2MG/2ML 2ml VIAL (1mg/ml) IV PRN (14:30)
[2022-12-21] MEDS ORDERED: ONDANSETRON HCL 4 MG/2 ML VIAL IV PRN (14:30)
[2022-12-21 15:38] VITALS: BP 99/57; PULSE 44; RESP 16; TEMP 97; O2SAT 97
[2022-12-21] MEDS: SODIUM CHLORIDE 0.9% 1,000 ML IV SCH ×2 (15:38→17:44)
[2022-12-21 17:00] VITALS: BP 99/57; PULSE 44; RESP 16; TEMP 97.9; O2SAT 97
[2022-12-21 17:30] VITALS: BP 91/42; PULSE 58
[2022-12-21] MEDS: HYDROmorphone HCL 2 MG/ML VL/or syr IV PRN (21:42)
[2022-12-21 22:00] VITALS: BP 100/63; PULSE 47; RESP 18; TEMP 98; O2SAT 100
[2022-12-21 22:34] VITALS: PULSE 45
[2022-12-22] VITALS (8 sets, daily range): BP systolic 106–127; BP diastolic 60–80; PULSE 66–98; RESP 16–20; TEMP 97.2–98.2; O2SAT 16–99
[2022-12-22] MEDS: LACTATED RINGER'S 1,000 ML IV SCH ×4 (01:00→18:02)
[2022-12-22] MEDS: HYDROcodone-ACET 5/325MG TAB PO PRN ×4 (01:26→15:03)
[2022-12-22] MEDS: SODIUM CHLORIDE 0.9% 1,000 ML IV SCH ×4 (04:45→22:39)
[2022-12-22 07:04] LABS: Basophils # (auto) 0 10 ^3/uL (0-0.2); Eosinophils # (auto) 0 10 ^3/uL (0-0.8); Hematocrit 29.7 % (36.0-46.0); Hemoglobin 9.9 g/dL (12.2-16.2); Lymphocytes # (auto) 0.7 10 ^3/uL (0.4-5.4); Lymphocytes % (auto) 7.3 % (10.0-50.0); Mean Corpuscular Hgb Conc. 33.4 g/dL (32.0-36.0); Monocytes # (auto) 0.6 10 ^3/uL (0-1.3); Monocytes % (auto) 6.1 % (0.0-12.0); Neutrophils # (auto) 8.8 10 ^3/uL (1.6-8.6); Neutrophils % (auto) 86.6 % (37.0-80.0); Red Blood Cells 3.53 10^6/uL (4.0-5.20); Red Cell Distribution Width 14.5 % (11.8-14.3); White Blood Cell 10.2 10^3/uL (4.4-10.8)
[2022-12-22] MEDS: cefTRIAXone 1GM/50ML D5W 50 ML IV SCH (08:53)
[2022-12-22] MEDS: metroNIDAZOLE 500MG/100ML 100 ML IV SCH ×2 (09:51→20:33)
[2022-12-22] MEDS: DOXYCYCLINE 100MG/250ML 250 ML IV SCH ×2 (10:51→22:22)
[2022-12-22] MEDS: HYDROmorphone HCL 2 MG/ML VL/or syr IV PRN ×2 (17:50→20:24)
[2022-12-23] MEDS: LACTATED RINGER'S 1,000 ML IV SCH ×2 (00:50→07:30)
[2022-12-23] MEDS: HYDROmorphone HCL 2 MG/ML VL/or syr IV PRN (02:53)
[2022-12-23 05:00] VITALS: BP 113/64; PULSE 106; RESP 16; TEMP 98.1; O2SAT 90
[2022-12-23 07:45] VITALS: BP 115/69; PULSE 89; RESP 17; TEMP 98.2; O2SAT 98
[2022-12-23 08:00] VITALS: PULSE 91; RESP 18; O2SAT 98
[2022-12-23] MEDS: cefTRIAXone 1GM/50ML D5W 50 ML IV SCH (10:00)
[2022-12-23] MEDS: metroNIDAZOLE 500MG/100ML 100 ML IV SCH (10:00)
[2022-12-23] MEDS: DOXYCYCLINE 100MG/250ML 250 ML IV SCH (10:00)
== END 2022-12-23 11:17 | disposition home or self-care (01) | DRG 513 ==
LOC: ER 07:23 → OVERFLOW 19:36 → CENTRAL 12-21 15:31 → TELE-CENTR 12-21 21:31
PROVIDERS: ADMIT Obstetrics & Gynecology; ATTEND Obstetrics & Gynecology
PROC: 0DN84ZZ Release Small Intestine, Percutaneous Endoscopic Approach (ICD-10-PCS; 2022-12-21)
PROC: 0DNU4ZZ Release Omentum, Percutaneous Endoscopic Approach (ICD-10-PCS; 2022-12-21)
PROC: 0DNW4ZZ Release Peritoneum, Percutaneous Endoscopic Approach (ICD-10-PCS; 2022-12-21)
PROC: 0U914ZZ Drainage of Left Ovary, Percutaneous Endoscopic Approach (ICD-10-PCS; principal; 2022-12-21 12:20)
DX: N80.122 Deep endometriosis of left ovary (principal); J45.909 Unspecified asthma, uncomplicated; N73.6 Female pelvic peritoneal adhesions (postinfective); Z88.0 Allergy status to penicillin; R19.00 Intra-abdominal and pelvic swelling, mass and lump, unspecified site; Z83.3 Family history of diabetes mellitus; Z81.8 Family history of other mental and behavioral disorders; Z82.49 Family history of ischemic heart disease and other diseases of the circulatory system; Z59.00 Homelessness unspecified; Z90.711 Acquired absence of uterus with remaining cervical stump; Z98.51 Tubal ligation status; Z85.41 Personal history of malignant neoplasm of cervix uteri
CPT/HCPCS: 36415; 74176; 76856; 80053; 81001; 84702; 85025; 85610; 85730; 86850; 86900; 86901; 93005; G0378; J0696; J1100; J1885; J2001; J2250; J2405; J2704; J3490

== ENCOUNTER 2023-08-08 08:40 | Emergency (ER) | payer MEDICAID ==
[~2023-08-08] VITALS: Ht 172.7 cm; Wt 70.4 kg
[2023-08-08] MEDS: CLINDAMYCIN HCL 150 MG CAP PO ONE (09:11)
[2023-08-08] MEDS ORDERED: CLIN300C70 PO (09:11)
[2023-08-08] MEDS ORDERED: BACDST PO (09:11)
[2023-08-08] MEDS ORDERED: IBUP1TAB5 PO (09:11)
[2023-08-08] MEDS ORDERED: MUPI2OIN2 EX (09:11)
[2023-08-08] MEDS: NEOMYCIN-BACITRACIN-POLYM UNITDOSE PKG TOP OINT TOP ONE (09:11)
[2023-08-08] MEDS: SULFAMETHOX W/TRIMETH(800/160MG) DS TAB PO ONE (09:12)
[2023-08-08 09:22] VITALS: BP 114/74; PULSE 83; RESP 16; TEMP 96.8; O2SAT 99
== END 2023-08-08 09:27 | disposition home or self-care (01) ==
LOC: ER 08:40
DX: L02.415 Cutaneous abscess of right lower limb (principal); L02.811 Cutaneous abscess of head [any part, except face]; I48.91 Unspecified atrial fibrillation; J45.909 Unspecified asthma, uncomplicated; Z90.710 Acquired absence of both cervix and uterus; Z59.00 Homelessness unspecified; Z79.1 Long term (current) use of non-steroidal anti-inflammatories (NSAID); Z79.899 Other long term (current) drug therapy; Z88.0 Allergy status to penicillin

== ENCOUNTER 2024-08-28 12:15 | Emergency (ER) | payer MEDICAID ==
[~2024-08-28] VITALS: Ht 172.7 cm; Wt 72.7 kg
[~2024-08-28 12:15] MED LIST changes: +BACDST PO; +CLIN1CAP70 PO; +IBUP1TAB5 PO; +MUPI2OIN2 EX
[2024-08-28 12:26] VITALS: BP 120/72; PULSE 86; RESP 16; TEMP 97.9; O2SAT 96
== END 2024-08-28 13:43 | disposition left against medical advice (07) ==
LOC: EDBD 12:15 → ER 12:15
DX: J02.9 Acute pharyngitis, unspecified (principal); Z53.21 Procedure and treatment not carried out due to patient leaving prior to being seen by health care provider

== ENCOUNTER 2025-02-19 20:22 | Emergency (ER) | payer MEDICAID ==
[~2025-02-19] VITALS: Ht 172.7 cm; Wt 72.6 kg
[2025-02-19] MEDS ORDERED: VANCOMYCIN PER PHARMACY 0 MG IV SCH (20:45)
[2025-02-19] MEDS ORDERED: MORPHINE SULFATE INJ 2 MG/ml SYRG IM ONE (20:45)
[2025-02-19] MEDS ORDERED: ONDANSETRON HCL 4 MG/2 ML VIAL IM ONE (20:45)
[2025-02-19] MEDS ORDERED: PIPERACILLIN-TAZOB 3.375GM 100 ML IV SCH (20:45)
[2025-02-19 21:35] LABS: Hematocrit 31.8 % (36.0-46.0); Hemoglobin 11.0 g/dL (12.2-16.2); Mean Corpuscular Hemoglobin 28.1 pg (28.0-32.0); Mean Corpuscular Volume 81.6 fL (80.0-100.0); Nucleated Red Blood Cells % 0.0 %
[2025-02-19] MEDS ORDERED: VANCOMYCIN 1.5GM/250ML 250 ML IV ONE (21:45)
[2025-02-19] MEDS: PIPERACILLIN-TAZOB 3.375GM 100 ML IV ONE (21:45)
[2025-02-19 21:51] LABS: Alanine Aminotransferase 11 U/L (7-40); Albumin 4.2 g/dL (3.2-4.8); Alkaline Phosphatase 89 U/L (46-116); Anion Gap 10 (5-15); BUN/Creatinine Ratio 16.7 (10.0-20.0); Bilirubin, Total 0.3 mg/dL (0.2-1.0); Blood Urea Nitrogen 12 mg/dL (9-23); Calcium 9.0 mg/dL (8.7-10.4); Carbon Dioxide 27 mmol/L (20-31); Chloride 102 mmol/L (98-107); Glucose 80 mg/dL (74-106); Potassium 4.1 mmol/L (3.5-5.1); Sodium 139 mmol/L (136-145); Total Protein 7.5 g/dL (5.7-8.2)
--- NOTE | 2025-02-20 00:39 | ED.PDOC ---
History of Present Illness HPI Comments This is a 29-year-old female with no past medical history who presents to the ER with a chief complaint of bilateral draining purulent wound on the shins. Patient reports she got bitten by ?spider one-week back at her mom's house, and since then has been experiencing lower extremity pain and swelling, associated with redness, she reported that the bite marjan started to become swollen and started draining yellow substance. She reports low-grade fever, chills but denies nausea and vomiting at this time, denies abdominal/respiratory complaints. But EMS patient was running low-grade fever 99.3F and other MRSA nares was positive Patient has been examined. Bilateral shins have purulent draining tender wounds. Chief Complaint: Wound Check Time Seen by MD: 20:30 Primary Care Provider: GUERDA Reviewed Notes: Nurses Notes, Sales And Management Trainee Notes Allergies: Coded Allergies: Penicillins (Verified Allergy, Unknown, 01/27/22) Home Meds Active Scripts Bacitracin (Bacitracin Oint) 1 Applic Ap, 1 APPLIC TOP BID for 14 Days, #28 APPLIC 0 Refills Prov:RODERICK RICHARD RESIDENT 02/20/25 Sulfamethoxazole W/Trimethopri (Bactrim Ds Tablet) 1 Tab Tb, 1 TAB PO BID for 14 Days, #28 TAB 0 Refills Prov:HILARYRODERICK RESIDENT 02/20/25 Mupirocin (Pseudomonas Fluores (Mupirocin) 2 % Oin, 1 APPLIC EX TID, #15 MG Prov:KALEIGH MURPHY Q BRANCH BILLING PAYROLL CLERK 08/08/23 Ibuprofen Micronized (Ibuprofen) 600 Mg Tab, 1 TAB PO Q6HPRN PRN, #20 TAB as needed for pain Prov:KALEIGH MURPHY Q BRANCH BILLING PAYROLL CLERK 08/08/23 Sulfamethoxazole W/Trimethopri (Bactrim Ds Tablet) 1 Tab Tb, 1 TAB PO BID for 10 Days, #20 TAB Prov:KALEIGH MURPHY Q BRANCH BILLING PAYROLL CLERK 08/08/23 Clindamycin Hcl (Clindamycin Hcl) 300 Mg Cap, 1 CAP PO QID for 10 Days, #40 CAP Prov:KATHERINE MURPHYA Q BRANCH BILLING PAYROLL CLERK 08/08/23 Sulfamethoxazole-Trimethoprim (Bactrim) 1 Tab Tab, 1 TAB PO BID for 7 Days, #14 TAB 0 Refills Prov:GARTH SEAY MD 08/13/21 Reported Medications [Divalproex [id number] M2] (Divalproex Sodium Dr) 250 MG TAB No Conflict Check, MG 06/24/12 [[id number] Mg] (Ibuprofen) 800 MG TAB No Conflict Check, MG 06/24/12 [Focalin Xr30 Mg] (Focalin Xr) 30 MG CAP No Conflict Check, MG 06/24/12 [[id number] Mg] (Strattera) 40 MG CAP No Conflict Check, MG 06/24/12 Information Source: Patient Mode of Arrival: EMS Past Medical History PAST MEDICAL HISTORY: AFIB, Asthma, Cancer, Liver Surgical History: Hysterectomy, Tubal Ligation CHIP BIN CONVEYOR TENDER History: Denies all CHIP BIN CONVEYOR TENDER Hx Family History Family History: Family hx of DM, Family hx of heart basilia Social History Smoker: Non-Smoker Alcohol: Denies ETOH Use Drugs: Marijuana, Methamphetamine Lives In: Homeless Constitutional: reports: chills, fatigue, fever; denies: diaphoresis, malaise, sweats, weakness, others EENTM: denies: blurred vision, double vision, ear bleeding, ear discharge, ear drainage, ear pain, ear ringing, eye pain, eye redness, hearing loss, mouth pain, mouth swelling, nasal discharge, nose bleeding, nose congestion, nose pain, photophobia, tearing, throat pain, throat swelling, voice changes, others Respiratory: denies: cough, hemoptysis, orthopnea, SOB at rest, shortness of breath, SOB with excertion, stridor, wheezing, others Cardiovascular: denies: chest pain, dizzy spells, diaphoresis, Dyspnea on exertion, edema, irregular heart beat, left arm pain, lightheadedness, palpitations, PND, syncope, others Gastrointestinal: denies: abdomen distended, abdominal pain, blood streaked bowels, constipated, diarrhea, dysphagia, difficulty swallowing, hematemesis, melena, nausea, poor appetite, poor fluid intake, rectal bleeding, rectal pain, vomiting, others Genitourinary: denies: abnormal vagina bleeding, burning, dyspareunia, dysuria, flank pain, frequency, hematuria, incontinence, pain, , vagina discharge, urgency, others Neurological: denies: dizziness, fainting, headache, left sided numbness, left sided weakness, numbness, paresthesia, pre-existing deficit, right sided numbness, right sided weakness, seizure, speech problems, tingling, tremors, weakness, others Musculoskeletal: reports: muscle pain Integumetry: reports: laceration, wounds Allergic/Immunocompromised: denies: Difficulty Healing, Frequent Infections, Hives, Itching, others Hematologic/Lymphatic: denies: anemia, blood clots, easy bleeding, easy bruising, swollen glands, others Endocrine: denies: excessive hunger, excessive sweating, excessive thirst, excessive urination, flushing, intolerance to cold, intolerance to heat, unexplained weight gain, unexplained weight loss, others Psychiatric: denies: anxiety, bipolar disorder, depression, hopeless, panic disorder, schizophrenia, sleepless, suicidal, others Physical Exam General Appearance: No Apparent Distress, Normal HEENT: Normal ENT Inspection, Pharynx Normal, TMs Normal Neck: Full Range of Motion, Non-Tender, Normal, Normal Inspection Respiratory: Chest Non-Tender, Lungs Clear, No Accessory Muscle Use, No Respiratory Distress, Normal Breath Sounds Cardiovascular: No Edema, No JVD, No Murmur, No Gallop, Normal Peripheral Pulses, Regular Rate/Rhythm Breast Exam: Deferred Gastrointestinal: No Organomegaly, Non Tender, No Pulsatile Mass, Normal Bowel Sounds, Soft Genitalia: Deferred Pelvic: Deferred Rectal: Deferred Extremities: Normal capillary refill, Normal range of motion, Swelling, Tender, Other (Bilateral shins have tender purulent draining wound with a yellow drainage) Musculoskeletal : Apperance: Normal Neurologic: Alert, integration software engineer II-XII nml as Tested, No Motor Deficits, Normal Affect, Normal Mood, No Sensory Deficits Cerebellar Function: Normal Reflexes: Normal Skin: Dry, Normal Color, Warm Lymphatic: No Adenopathy Was a procedure done? Was a procedure done?: No Differential Dx Considerations may include: Cellulitis/superficial infection/erysipelas X-Ray, Labs, Meds, VS Vital Signs Date Time Temp Pulse Resp B/P (MAP) Pulse Ox O2 Delivery O2 Flow Rate FiO2 02/20/25 01:32 79 16 98 Room Air* 0 21 02/20/25 01:28 79 16 104/54 02/20/25 01:00 98.1 79 16 104/54 (71) 97 98.1 02/19/25 20:32 99.1 101 18 118/69 99 99.1 Lab Test 02/19/25 21:09 Range/Units White Blood Count 12.9 H 4.4-10.8 10^3/uL Red Blood Count 3.90 L 4.0-5.20 10^6/uL Hemoglobin 11.0 L 12.2-16.2 g/dL Hematocrit 31.8 L 36.0-46.0 % Mean Corpuscular Volume 81.6 80.0-100.0 fL Mean Corpuscular Hemoglobin 28.1 28.0-32.0 pg Mean Corpuscular Hemoglobin Concent 34.5 32.0-36.0 g/dL Red Cell Distribution Width 13.9 11.8-14.3 % Platelet Count 474 H 140-450 10^3/uL Mean Platelet Volume 7.3 6.9-10.8 fL Neutrophils (%) (Auto) 79.4 37.0-80.0 % Lymphocytes (%) (Auto) 10.1 10.0-50.0 % Monocytes (%) (Auto) 8.6 0.0-12.0 % Eosinophils (%) (Auto) 1.6 0.0-7.0 % Basophils (%) (Auto) 0.3 0.0-2.0 % Neutrophils # (Auto) 10.2 H 1.6-8.6 10 ^3/uL Lymphocytes # (Auto) 1.3 0.4-5.4 10 ^3/uL Monocytes # (Auto) 1.1 0-1.3 10 ^3/uL Eosinophils # (Auto) 0.2 0-0.8 10 ^3/uL Basophils # (Auto) 0 0-0.2 10 ^3/uL Nucleated Red Blood Cells 0.0 % Sodium Level 139 136-145 mmol/L Potassium Level 4.1 3.5-5.1 mmol/L Chloride Level 102 98-107 mmol/L Carbon Dioxide Level 27 20-31 mmol/L Anion Gap 10 5-15 Blood Urea Nitrogen 12 9-23 mg/dL Creatinine 0.72 0.550-1.02 mg/dL Glomerular Filtration Rate Calc 117 >90 mL/min BUN/Creatinine Ratio 16.7 10.0-20.0 Serum Glucose 80 74-106 mg/dL Lactic Acid Level 1.0 0.4-2.0 mmol/L Calcium Level 9.0 8.7-10.4 mg/dL Total Bilirubin 0.3 0.2-1.0 mg/dL Aspartate Amino Transferase (AST) 15 13-40 U/L Alanine Aminotransferase (ALT) 11 7-40 U/L Alkaline Phosphatase 89 46-116 U/L Total Protein 7.5 5.7-8.2 g/dL Albumin 4.2 3.2-4.8 g/dL Current Medications Medications (Trade) Dose Ordered Sig/Ivett Route Start Time Stop Time Status Last Admin Sodium Chloride 1,000 ml @ 1,000 mls/hr Q1H ONCE IV 02/19/25 20:45 02/19/25 21:44 DC 02/20/25 03:48 Acetaminophen (Tylenol Tablet) 650 mg ONCE ONCE PO 02/19/25 20:45 02/19/25 20:58 DC 02/20/25 01:19 Vancomycin HCl 250 ml @ 166.667 mls/hr ONCE ONCE IV 02/19/25 22:45 02/20/25 00:14 DC 02/20/25 01:19 Meropenem 50 ml @ 17 mls/hr Q8HR IV 02/20/25 00:45 02/20/25 03:48 Morphine Sulfate 2 mg ONCE ONCE IV 02/20/25 01:30 02/20/25 01:31 DC 02/20/25 01:28 Ondansetron HCl (Zofran) 4 mg ONCE ONCE IV 02/20/25 01:45 02/20/25 01:46 DC 02/20/25 01:38 X-Ray, Labs, Meds, VS Comment X-ray right tibia/fibula shows No acute fracture or malalignment. Diffuse subcutaneous swelling without definite soft tissue gas. CT or MRI may be beneficial in further assessment if clinically indicated. 1 dose of IV vancomycin and IV meropenem administered, wound cleaned with bacitracin and Betadine, IV NS 1 L bolus administered, lactic acid unremarkable, CBC shows no left shift. Patient will be discharged with Bactrim DS b.i.d. for the next 14 days, instructions for wound care provided. Patient agreed for discharge Images Reviewed?: Images reviewed and evaluated by me Time of 1ST Reevaluation: 00:00 Reevaluation 1ST: Improved Time of 2ND Reevaluation: 02:00 Reevaluation 2ND: Improved Time of 3RD Reevaluation: 04:00 Reevaluation 3RD: Improved Consultation: PCP Patient Education/Counseling: Diagnosis, Treatment, Prognosis, Need For Follow Up Family Education/Counseling: No Family Present SEPSIS Sepsis Screen Date sepsis recognized/suspect: Feb 19, 2025 Time Sepsis recognized/suspect: 2034 Recent Procedure: No On Antibiotic Therapy: No Respiratory Rate >20: No Heart Rate >90: Yes Temp<36 C (96.8 F) or >38.3 C: No SBP <90 or MAP <65 mmHG: No New Acute Mental Status Change: No Is the patient on CPAP, BIPAP,: No Physician Orders Urinalysis (02/19/25 20:39) Test, Urine (02/19/25 20:39) Vancomycin Per Pharmacy (02/19/25 20:45) L Tib Fib Xray (02/19/25 20:39) R Tib Fib Xray (02/19/25 20:39) Cleanse Wound With Ns (02/19/25 20:47) Clean Wound With: (02/19/25 20:47) Blood Culture (02/19/25 20:47) Complete Blood Count (02/20/25 04:00) Creatinine (02/20/25 04:00) Vancomycin,Random (02/20/25 04:00) Meropenem 1gm Ivpb (Merrem 1gm/50ml) (02/20/25 00:45) Vital Signs Date Time Temp Pulse Resp B/P (MAP) Pulse Ox O2 Delivery O2 Flow Rate FiO2 02/20/25 01:32 79 16 98 Room Air* 0 21 02/20/25 01:28 79 16 104/54 02/20/25 01:00 98.1 79 16 104/54 (71) 97 98.1 02/19/25 20:32 99.1 101 18 118/69 99 99.1 Laboratory Tests Test 02/19/25 21:09 Lactic Acid Level 1.0 mmol/L (0.4-2.0) White Blood Count 12.9 10^3/uL (4.4-10.8) H Medications Medications Dose Ordered Sig/Ivett Route Start Time Stop Time Status Last Admin Dose Admin Acetaminophen 650 mg ONCE ONCE PO 02/19/25 20:45 02/19/25 20:58 DC 02/20/25 01:19 Meropenem 50 ml @ 17 mls/hr Q8HR IV 02/20/25 00:45 02/20/25 03:48 Morphine Sulfate 2 mg ONCE ONCE IV 02/20/25 01:30 02/20/25 01:31 DC 02/20/25 01:28 Ondansetron HCl 4 mg ONCE ONCE IV 02/20/25 01:45 02/20/25 01:46 DC 02/20/25 01:38 Sodium Chloride 1,000 ml @ 1,000 mls/hr Q1H ONCE IV 02/19/25 20:45 02/19/25 21:44 DC 02/20/25 03:48 Vancomycin HCl 250 ml @ 166.667 mls/hr ONCE ONCE IV 02/19/25 22:45 02/20/25 00:14 DC 02/20/25 01:19 Departure 1 Departure Time of Disposition: 05:00 Impression: Primary Impression: Bite wound Disposition: HOME / SELF CARE / HOMELESS Condition: Stable Additional Instructions: Tablet Bactrim DS twice daily for the next 14 days Topical ointment bacitracin twice daily along with cleaning the wound Ibuprofen as needed for pain control Avoid going into swimming pool/dirt Please return to the ER in case of worsening redness, swelling, fever, chills Please go to the ER or call your doctor if you noticed redness swelling warmth or pus from the bite, fever or chills, numbness, trouble moving fingers or joints Follow up with primary care physician within the next 3 days e-Prescriptions Bacitracin (Bacitracin Oint) 1 Applic Ap 1 APPLIC TOP BID for 14 Days, #28 APPLIC 0 Refills Prov: RODERICK RICHARD RESIDENT 02/20/25 Sulfamethoxazole W/Trimethopri (Bactrim Ds Tablet) 1 Tab Tb 1 TAB PO BID for 14 Days, #28 TAB 0 Refills Prov: RODERICK RICHARD RESIDENT 02/20/25 Critical Care Note Critical Care Time?: No Stability Stability form required: No RODERICK RICHARD RESIDENT Feb 20, 2025 00:39
[2025-02-20] MEDS: ACETAMINOPHEN 325 MG TAB PO ONE (01:19)
[2025-02-20] MEDS: VANCOMYCIN 1.5GM/250ML 250 ML IV ONE (01:19)
[2025-02-20] MEDS: MORPHINE SULFATE 4 MG/ML SYR/VIAL ONE (01:28)
[2025-02-20] MEDS: MORPHINE SULFATE INJ 2 MG/ml SYRG IV ONE (01:28)
[2025-02-20 01:32] VITALS: PULSE 79; RESP 16; O2SAT 98
--- NOTE | 2025-02-20 01:35 | DVH ---
EXAM: XY R TIB FIB XRAY REASON FOR EXAM: purlent draining wounds TECHNIQUE: 2 views of the right tibia/fibula COMPARISON: XY L TIB FIB XRAY on DOS: 02/20/25 FINDINGS/IMPRESSION: No acute fracture or malalignment. Diffuse subcutaneous swelling without definite soft tissue gas. CT or MRI may be beneficial in further assessment if clinically indicated.
--- NOTE | 2025-02-20 01:35 | DVH ---
CLINICAL INDICATION: purlent draining wounds TECHNIQUE: XY L TIB FIB XRAY Comparison: None FINDINGS/IMPRESSION: : There is no evidence of acute fracture or dislocation. Soft tissues are unremarkable.
[2025-02-20] MEDS: ONDANSETRON HCL 4 MG/2 ML VIAL IM ONE (01:37)
[2025-02-20] MEDS: ONDANSETRON HCL 4 MG/2 ML VIAL IV ONE (01:38)
[2025-02-20] MEDS: SODIUM CHLORIDE 0.9% 1,000 ML IV ONE (03:48)
[2025-02-20] MEDS: MEROPENEM 1GM IVPB 50 ML IV SCH (03:48)
[2025-02-20] MEDS ORDERED: BACDST PO (04:25)
[2025-02-20] MEDS ORDERED: BAC09TP TOP (04:25)
[2025-02-20 06:08] LABS: Hematocrit 31.6 % (36.0-46.0); Hemoglobin 11.0 g/dL (12.2-16.2); Mean Corpuscular Hemoglobin 28.7 pg (28.0-32.0); Mean Corpuscular Volume 82.5 fL (80.0-100.0); Nucleated Red Blood Cells % 0.1 %
[2025-02-20] MEDS: TETANUS-DIPTH-ACEL PERTUSSIS 0.5ML SYR Tdap IM ONE (06:41)
[2025-02-20 07:28] VITALS: BP 100/71; PULSE 81; RESP 16; TEMP 98.1; O2SAT 98
== END 2025-02-20 07:38 | disposition home or self-care (01) ==
LOC: EDBD 20:22 → ER 20:22
DX: S80.872A Other superficial bite, left lower leg, initial encounter (principal); S80.871A Other superficial bite, right lower leg, initial encounter; X58.XXXA Exposure to other specified factors, initial encounter; Y93.89 Activity, other specified; Y92.89 Other specified places as the place of occurrence of the external cause; Y99.8 Other external cause status; I48.91 Unspecified atrial fibrillation; J45.909 Unspecified asthma, uncomplicated; Z85.05 Personal history of malignant neoplasm of liver; Z88.0 Allergy status to penicillin; Z90.710 Acquired absence of both cervix and uterus
CPT/HCPCS: 36415; 73590; 80053; 80202; 82565; 83605; 85025; 87040; 90471; 90715; 96361; 96365; 96375; 99284; J2185; J2270; J2405; J3374; J7030